=== PATIENT | male | born 1990 | race Caucasian/White ===

== ENCOUNTER 2017-01-21 22:01 | Emergency (ER) | payer SELFPAY ==
[~2017-01-21] VITALS: Ht 175.2 cm; Wt 74.8 kg
[~2017-01-21 22:01] MED LIST: FLEXERIL10 MG PO; IBU800 M1 PO; MOTRIN800 MG PO; NKHM; TYLENOL W/CODEI1 TA2 PO; VICODIN 5/500 505 MG PO
== END 2017-01-21 23:56 | disposition home or self-care (01) ==
LOC: ED 22:01
DX: S63.251A Unspecified dislocation of left index finger, initial encounter (principal); F17.200 Nicotine dependence, unspecified, uncomplicated; W21.05XA Struck by basketball, initial encounter; Y93.67 Activity, basketball; Y92.9 Unspecified place or not applicable; Y99.9 Unspecified external cause status

== ENCOUNTER 2018-12-11 09:30 | Emergency (ER) | payer MEDICAID ==
[2018-12-11] MEDS ORDERED: TAMIFLU 75MG CA75 MG PO (10:47)
== END 2018-12-11 11:04 | disposition home or self-care (01) ==
LOC: ED 09:30
DX: J10.1 Influenza due to other identified influenza virus with other respiratory manifestations (principal)

== ENCOUNTER 2019-06-10 09:33 | Emergency (ER) | payer MEDICAID ==
[~2019-06-10] VITALS: Ht 177.8 cm; Wt 83.9 kg
[~2019-06-10 09:33] MED LIST changes: +TAMIFLU 75MG CA75 MG PO
[2019-06-10] MEDS ORDERED: PROVENTIL HFA6.7 GM INH (11:52)
[2019-06-10] MEDS ORDERED: ZITHROMAX250 MG PO (11:52)
[2019-06-10] MEDS ORDERED: TESSALON PERLE100 M1 PO (11:52)
== END 2019-06-10 11:56 | disposition home or self-care (01) ==
LOC: ED 09:33
DX: J20.9 Acute bronchitis, unspecified (principal)

== ENCOUNTER 2019-11-22 19:46 | Emergency (ER) | payer SELFPAY ==
[~2019-11-22] VITALS: Ht 175.2 cm; Wt 90.7 kg
[~2019-11-22 19:46] MED LIST changes: +PROVENTIL HFA6.7 GM INH; +TESSALON PERLE100 M1 PO; +ZITHROMAX250 MG PO
== END 2019-11-22 21:10 | disposition home or self-care (01) ==
LOC: ED 19:46
DX: S61.201A Unspecified open wound of left index finger without damage to nail, initial encounter (principal); Z79.899 Other long term (current) drug therapy; Z79.2 Long term (current) use of antibiotics; W26.8XXA Contact with other sharp object(s), not elsewhere classified, initial encounter; Y93.89 Activity, other specified; Y92.098 Other place in other non-institutional residence as the place of occurrence of the external cause; Y99.8 Other external cause status

== ENCOUNTER 2020-08-03 13:40 | Emergency (ER) | payer OTHER ==
[~2020-08-03] VITALS: Wt 97.5 kg
[2020-08-03 14:36] LABS: BASO # 0.1 10*3/uL (0.0-0.1); BASO % 0.6 % (0.0-1.0); EOS # 0.3 10*3/uL (0.0-0.4); EOS % 1.6 % (1.0-4.0); HEMATOCRIT 41.1 % (42.0-52.0); LYMPH # 3.4 10*3/uL (1.3-4.4); MEAN CELL VOLUME 95.4 fl (80.0-94.0); MEAN CORPUSCULAR HGB 32.3 pg (27.0-31.0); MEAN CORPUSCULAR HGB CONC 33.8 g/dl (33.0-37.0); MEAN PLATELET VOLUME 10.5 fl (9.6-12.3); MONO # 1.2 10*3/uL (0.1-1.0); MONO % 7.9 % (3.0-9.0); NEUT # 10.3 10*3/uL (2.3-7.9); NEUT % 67.4 % (47.0-73.0); PLATELET COUNT AUTOMATED 332 10*3/uL (130-400); RED BLOOD COUNT 4.31 10*6/uL (4.50-5.90); RED CELL DISTRI WIDTH 12.4 % (0-14.5); WHITE BLOOD COUNT 15.3 10*3/uL (4.8-10.8)
[2020-08-03 15:03] LABS: ALKALINE PHOSPHATASE 85 U/L (45-117); BUN 18 mg/dl (7-24); CHLORIDE 112 mmol/L (98-107); CREATININE 1.02 mg/dL (0.70-1.30); POTASSIUM 3.7 mmol/L (3.5-5.1); SGOT/AST 59 IU/L (3-35); SGPT/ALT 117 U/L (12-78); SODIUM 142 mmol/L (136-145); TOTAL PROTEIN 7.9 gm/dL (6.4-8.2)
[2020-08-03] MEDS ORDERED: PREDNISONE20 M1 PO (16:09)
[2020-08-03] MEDS ORDERED: AVPAK AZITHROM250 MG PO (16:09)
[2020-08-03] MEDS ORDERED: ROBITUSSIN DM 101 OZ PO (16:09)
[2020-08-03] MEDS ORDERED: PROVENTIL HFA6.7 GM INH (16:09)
== END 2020-08-03 17:09 | disposition home or self-care (01) ==
LOC: ED 13:40
PROVIDERS: Nurse Practitioner Family
DX: J20.9 Acute bronchitis, unspecified (principal); Z20.828 Contact with and (suspected) exposure to other viral communicable diseases; Z79.899 Other long term (current) drug therapy

== ENCOUNTER 2023-02-07 13:19 | Emergency (ER) | payer OTHER ==
[~2023-02-07] VITALS: Ht 175.2 cm; Wt 90.7 kg
[~2023-02-07 13:19] MED LIST changes: +AVPAK AZITHROM250 MG PO; +PREDNISONE20 M1 PO; +ROBITUSSIN DM 101 OZ PO
[2023-02-07] MEDS ORDERED: CILOXAN 5 ML5 ML OPH (14:32)
== END 2023-02-07 14:45 | disposition home or self-care (01) ==
LOC: ED 13:19
DX: T15.91XA Foreign body on external eye, part unspecified, right eye, initial encounter (principal)

== ENCOUNTER 2023-04-23 15:27 | Emergency (ER) | payer OTHER ==
[~2023-04-23] VITALS: Ht 175.2 cm; Wt 96.2 kg
[~2023-04-23 15:27] MED LIST changes: +CILOXAN 5 ML5 ML OPH
== END 2023-04-23 16:43 | disposition home or self-care (01) ==
LOC: ED 15:27
DX: S63.502A Unspecified sprain of left wrist, initial encounter (principal); W23.1XXA Caught, crushed, jammed, or pinched between stationary objects, initial encounter; Y93.89 Activity, other specified; Y92.89 Other specified places as the place of occurrence of the external cause; Y99.8 Other external cause status

== ENCOUNTER 2025-06-30 22:24 | Emergency (ER) | payer OTHER ==
[~2025-06-30] VITALS: Ht 182.8 cm; Wt 113.4 kg
[2025-06-30] MEDS ORDERED: NEURONTIN300 MG PO (22:51)
[2025-07-01] MEDS ORDERED: CEPHALEXIN500 M1 PO (00:40)
[2025-07-01] MEDS ORDERED: Bacitracin Zinc 14 GM TUBE T ONE (00:40)
== END 2025-07-01 00:58 | disposition home or self-care (01) ==
LOC: ED 22:24
DX: S61.411A Laceration without foreign body of right hand, initial encounter (principal); Z79.899 Other long term (current) drug therapy; W20.8XXA Other cause of strike by thrown, projected or falling object, initial encounter; Y93.89 Activity, other specified; Y92.89 Other specified places as the place of occurrence of the external cause; Y99.8 Other external cause status